=== PATIENT | male | born 1975 | race Caucasian/White ===

== ENCOUNTER 2024-05-11 07:42 | Emergency (ER) | payer BC, SELFPAY ==
[2024-05-11 07:46] VITALS: BP 146/86; PULSE 93; RESP 15; O2SAT 99
[2024-05-11 08:03] VITALS: BP 146/86; PULSE 93; RESP 15; O2SAT 99
[2024-05-11] MEDS: Erythromycin Ophth Oint 3.5 GM TUBE OD (08:15)
--- NOTE | 2024-05-11 08:20 | ED.GENADUL_ITS ---
Discharge Plan Disposition Patient Disposition: Home Condition: Stable Discharge Details Clinical Impression: Hordeolum Primary Care Provider: Unknown,Unknown ED Provider: Felicity Haile Home Meds and New Rx's Prescriptions: Continued lisinopril 20 mg tablet 20 mg PO DAILY tadalafil 5 mg tablet 5 mg PO ONCE Discharge Instructions Instructions: Nita Additional Instructions: Warm compresses, 10 minutes every hour to with moist heat such as a facecloth May lightly massage after shower Erythromycin half-inch strip to affected eye 3 times daily while awake Tylenol as needed for discomfort Should you have worsening pain, redness around the eye, or develop fever please return to the emergency department as you may require an oral antibiotic If this is persistent greater than 1 week recommendation to follow-up with [facility]/your eye doctor HPI General Date/Time Provider Initiated Documentation: 05/11/24 08:02 . HPI Narrative: This 49-year-old male presents with swollen and painful right upper eyelid which started 2 days ago. Denies any fever or chills. Denies any change in vision. Has had some purulent drainage. States is painful. Denies history of similar symptoms in the past or known trauma. Otherwise reportedly healthy. Related Data Home Medications Medication Instructions Recorded Confirmed lisinopril 20 mg tablet 20 mg PO DAILY 05/11/24 05/11/24 tadalafil 5 mg tablet 5 mg PO ONCE 05/11/24 05/11/24 Allergies Allergy/AdvReac Type Severity Reaction Status Date / Time iodine Allergy Mild Skin Rash Verified 05/11/24 07:50 General Stated Complaint: EyeProblem YONI: 4 Exam Eyes Eyes/upper lids images: 2 1. Palpable hordeolum, tender, no drainage, no to conjunctival injection, pupil equal round reactive to light and accommodation, extraocular muscles intact, no proptosis, no surrounding erythema, no evidence of preseptal cellulitis Course Vital Signs Vital signs: Vital Signs Pulse 93 H 05/11/24 07:46 Respiratory Rate 15 05/11/24 07:46 Blood Pressure 146/86 H 05/11/24 07:46 Pulse Oximetry 99 05/11/24 07:46 Pulse 93 H 05/11/24 08:03 Respiratory Rate 15 05/11/24 08:03 Blood Pressure 146/86 H 05/11/24 08:03 Blood Pressure Position Sitting 05/11/24 08:03 Pulse Oximetry 99 05/11/24 08:03 Oxygen Delivery Method Room Air 05/11/24 08:03 Oxygen Flow Rate 0 05/11/24 08:03 Pain Level 6 05/11/24 08:03 Medical Decision Making 49-year-old male presenting with palpable hordeolum. No clinical findings consistent with preseptal or periorbital cellulitis. Will place patient on erythromycin and encouraged warm compresses. Return precautions reviewed and patient expressed understanding Quality:SDOH Health Related Social Needs: 2 No Data to Display PFSH All Active Problems (Updated 05/11/24 @ 08:10 by TERA Leonard) Hordeolum (Acute) Social History Smoking/Tobacco Use Status: Never Smoking risk assessment performed?: Yes Alcohol Intake: current Alcohol Intake frequency: holidays/special occasions only Drug use: Never Substance use type: does not use PAWSS Have you Been Recently Intoxicated or Drunk Within the Last 30 days?: No Have you Ever Experienced Previous Episodes of Alcohol Withdrawal?: No Have you ever Experienced Withdrawal Seizures?: No Have you ever Experienced Delirium Tremens(DT)s?: No Have you ever undergone Alcohol Rehabilitation Treatment (i.e, inpt ot outpatient treatment programs)?: No Have you ever Experienced Blackouts?: No Have you ever Combined Alcohol with other Downers within the last 90 days?: No Have you ever Combined Alcohol with any other Substance of Abuse during the last 90 days?: No Result: 0
== END 2024-05-11 08:17 | disposition home or self-care (01) ==
LOC: ER 08:22
PROVIDERS: Emergency Provider Physician Assistant
DX: H00.011 Hordeolum externum right upper eyelid (principal)
CPT/HCPCS: 99283